=== PATIENT | male | born 1970 | race Caucasian/White ===

== ENCOUNTER 2016-09-03 05:19 | Inpatient (IN) | payer OTHER ==
--- NOTE | 2016-08-28 10:58 | PREOPHP ---
DATE OF ADMISSION: 09/03/2016 The patient to have surgery with Dr. Huan Clarke 09/03/2016. REASON FOR CONSULTATION: Consultation requested by Dr. Huan Clarke for medical evaluation and mercedez arance of a 46-year-old gentleman about to undergo surgery on his lumbar spine. Thank you, Dr. Clarke, for allowing us to participate in the care of this patient. HISTORY OF PRESENT ILLNESS: Adalberto Perez is a 46-year-old gentleman complaints of back secondary to work injury is currently being admitted for microdiskectomy at L4-L5 and L5-S1 on the right for herniated disk. In terms of his general medical condition, the patient has been relatively well; ho wever, has some weight issues and is being treated with medications. PAST MEDICAL HISTORY: He has had the following prior surgery, which is surgery for removal of a nec k growth x2. Other than that, has had no medical hospitalizations nor other surgeries. He has not broken any bones. MEDICATIONS: He is currently takin. Pravastatin 20 mg a day. 1. Metformin 500 mg b.i.d. 2. Vitamin D for a vitamin D deficiency. ALLERGIES: HE IS ALLERGIC TO PENICILLIN WELL CRAB AND LOBSTER. SOCIAL HISTORY: The patient is , has 4 children, no grandchildren. He does not smoke. Alco hol socially. No coffee. Has no difficulty sleeping at night and works as a milk pickup truck driver. FAMILY HISTORY: Both parents are . Father in his 60s of lung cancer. Mother als o in her 60s of breast cancer. Father was a diabetic. One sibling OD'd. Six siblings are living. There is a family history of diabetes, cancer and hypertension. No heart or stroke to his knowledg e. REVIEW OF SYSTEMS HEENT: Periodic headaches secondary to neck pain. CARDIORESPIRATORY: Denies any chest pain or shortness breath. GASTROINTESTINAL: No melena, hematemesis. GENITOURINARY: No urgency, frequency. MUSCULOSKELETAL: Positive for back pain. NEUROPSYCHIATRIC: Unremarkable. GENERAL HEALTH: As above. PHYSICAL EXAMINATION: VITAL SIGNS: The patient's blood pressure was 140/90, pulse was 80 and regular, respirations were 1 8, temperature 98.4. Height 6 feet. Weight 252 pounds. GENERAL: The patient was noted to be a well-developed, well-nourished, overweight male, alert and c ooperative, in no apparent acute distress, oriented to time, place, and person. HEAD, EARS, EYES, NOSE AND THROAT: Head was atraumatic. Eyes: Pupils were equal, reactive to ligh t and accommodation. Fundi were benign. Tympanic membranes were unremarkable. Nose was negative. Mouth was unremarkable. Fair oral hygiene was present. NECK: Supple without any rigidity. Trachea was midline. Thyroid was unremarkable. Neck veins wer e flat. Carotid pulses were equal. No bruits were heard. There was a scar posterior neck from rem oval of a growth on the right side. BACK: Unremarkable. CHEST: Symmetrical. BREASTS AND AXILLARY: Did not reveal any masses. LUNGS: Clear to percussion and auscultation. HEART: PMI is fifth intercostal space at the midclavicular line. Regular sinus rhythm was noted. No significant murmurs, rubs, or gallops being elicited. ABDOMEN: Soft, good bowel sounds were noted. No significant organomegaly, masses, or tenderness. GENITALIA: Normal male external genitalia. RECTAL AND PROSTATIC: Per PCP. EXTREMITIES: Did not reveal any clubbing, edema or cyanosis. Peripheral pulses were physiologic. SKIN: Moist and warm without any eruptions. No gross lymphadenopathy was noted. NEUROLOGIC: Grossly intact. IMPRESSION 1. Lumbar disk disease particularly L4-L5, L5-S1. 2. Diabetes mellitus type 2. 3. Hyperlipidemia. 4. Hypertension. 5. Stable health. LABORATORIES: Review of laboratory and other data revealed the following: Patient's chemistry pane l including electrolytes, BUN, creatinine and liver function tests revealed normal electrolytes, BUN and creatinine. The patient's liver function tests revealed minimal elevation of SGPT and SGOT pro bably secondary to his weight issue. His glucose was 136. Hemoglobin A1c was 7.2. The patient's C BC, UA, PT and PTT were normal. His EKG was unremarkable, some minor ST-T wave changes without any acute changes being noted. The p atient's chest x-ray was normal as was his bladder scan revealed a residual of 15 mL. DISCUSSION: Dr. Clarke, I see no contraindication in this patient undergoing current proposed gissel jo under desired form of anesthesia. I will be more than happy to follow him up along with you du ring his stay at [facility]. Thank you again, Dr. Clarke, for allowing us to participate in care of this patient. Dictated By: ROX DUNCAN/YOLY Conf#: [id number] DID#: [id number]
[2016-09-03] VITALS (22 sets, daily range): BP systolic 126–200; BP diastolic 57–111; PULSE 89–106; RESP 16–21; Ht 182.9 cm; Wt 116.7 kg
[~2016-09-03] VITALS: Ht 182.9 cm; Wt 116.7 kg
[~2016-09-03 05:19] MED LIST: LACTATED RINGER'S 1,000 ML IV* SCH; VANCOMYCIN 1 GM (PMX) 250 ML IVPB ONE
[2016-09-03] MEDS ORDERED: vitamin d (06:30)
[2016-09-03] MEDS ORDERED: PRA20 PO (06:30)
[2016-09-03] MEDS ORDERED: METF500T4 PO (06:30)
[2016-09-03] MEDS ORDERED: ONDANSETRON 4 MG INJ ONE (06:48)
[2016-09-03] MEDS ORDERED: PROPOFOL 20 ML ONE ×2 (06:48→07:29)
[2016-09-03] MEDS ORDERED: MIDAZOLAM 1 MG/ML 2 ML INJ ONE (06:48)
[2016-09-03] MEDS ORDERED: ROCURONIUM 50 MG INJ ONE ×2 (06:48→07:29)
[2016-09-03] MEDS ORDERED: HYDROmorphONE 2 MG/ML SYG ONE (06:57)
[2016-09-03] MEDS ORDERED: ALBU2.5V9 IH (06:59)
[2016-09-03] MEDS ORDERED: BUPIVACAINE 0.25% (MPF) 10 ML 10 ML VIAL ONE (07:00)
[2016-09-03] MEDS ORDERED: GELATIN SIZE 100 SPONGE ONE (07:00)
[2016-09-03] MEDS ORDERED: POLYMYXIN/BACITRACIN 1L IRRIG ONE (07:01)
[2016-09-03] MEDS ORDERED: THROMBIN 5000 UNIT VIAL ONE (07:01)
[2016-09-03] MEDS ORDERED: DIPHENHYDRAMINE 50 MG INJ ONE (07:03)
[2016-09-03] MEDS ORDERED: METOPROLOL 5 MG INJ ONE (07:38)
[2016-09-03] MEDS ORDERED: EPHEDrine SULFATE 50 MG/5 ML SYG ONE (08:05)
[2016-09-03] MEDS ORDERED: NEOSTIGMINE 3 MG/3 ML SYRINGE ONE (08:59)
[2016-09-03] MEDS ORDERED: GLYCOPYRROLATE 1 MG INJ ONE (08:59)
[2016-09-03] MEDS ORDERED: METOCLOPRAMIDE 10 MG INJ IV PRN (09:00)
[2016-09-03] MEDS ORDERED: LABETALOL HCL 20MG INJ IV PRN (09:00)
[2016-09-03] MEDS ORDERED: MEPERIDINE 25 MG INJ IV PRN (09:00)
[2016-09-03] MEDS ORDERED: DIPHENHYDRAMINE 50 MG INJ IV PRN (09:00)
[2016-09-03] MEDS ORDERED: ONDANSETRON 4 MG INJ IV PRN ×2 (09:00→09:30)
[2016-09-03] MEDS ORDERED: HYDROmorphONE (0.2 MG/ML) 10ML SYG IV PRN ×2 (09:00)
[2016-09-03] MEDS ORDERED: FENTAnyl 50 MCG/ML VIAL IV PRN ×3 (09:00)
[2016-09-03] MEDS ORDERED: hydrALAzine 20 MG INJ IV PRN (09:00)
[2016-09-03] MEDS ORDERED: HYDROmorphONE 0.2 MG/ML PCA ONE (09:28)
[2016-09-03] MEDS ORDERED: HYDROmorphONE 0.2 MG/ML PCA IV SCH ×2 (09:29→14:30)
[2016-09-03] MEDS ORDERED: BETHANECHOL 25 MG TAB PO PRN (09:30)
[2016-09-03] MEDS ORDERED: NACL 0.9% 3 ML SYG IV SCH (09:30)
[2016-09-03] MEDS ORDERED: HYDROCODONE/APAP (5/325) TAB PO PRN ×2 (09:30)
[2016-09-03] MEDS ORDERED: CEPASTAT LOZENGE MT PRN (09:30)
[2016-09-03] MEDS ORDERED: ACETAMINOPHEN 325 MG TAB PO PRN (09:30)
[2016-09-03] MEDS ORDERED: PROCHLORPERAZINE 10 MG TAB PO PRN (09:30)
[2016-09-03] MEDS ORDERED: TRIMETHOBENZAMIDE 100 MG/ML VIAL IM PRN (09:30)
[2016-09-03] MEDS ORDERED: DIAZEPAM 5 MG/ML SYG IM PRN (09:30)
[2016-09-03] MEDS ORDERED: NALOXONE (0.4 MG/ML) INJ IV PRN (09:30)
[2016-09-03] MEDS ORDERED: AL HYDROX/MG HYDROX/SIMETH 30 ML CUP PO PRN (09:30)
[2016-09-03] MEDS ORDERED: ZOLPIDEM 5 MG TAB PO PRN (09:30)
[2016-09-03] MEDS: HYDROmorphONE (0.2 MG/ML) 10ML SYG IV PRN ×3 (09:38→09:56)
--- NOTE | 2016-09-03 10:00 | RADRPT ---
PROCEDURE: XR Lumbar Spine. CLINICAL INDICATION: Lumbar microdiskectomy. TECHNIQUE: Lumbar spine x-rays, single cross-table lateral intraoperative view. COMPARISON: None. FINDINGS: Lumbosacral intervertebral disk narrowing is present. Surgical instrumentation is present at the L5 -S1 disk level and at the level of the superior endplate of L4. Vertebral body heights are normal. Vertebral body alignment is maintained. IMPRESSION: Surgical instrumentation markers, as described above. Lumbosacral degenerative disk disease. RPTAT: HLST .Lluvia Mroeno MD, MD Date Time Electronically viewed and signed by .Lluvia Moreno MD, MD on 09/03/2016 10:00 .T/
--- NOTE | 2016-09-03 10:23 | RADRPT ---
PROCEDURE: XR Lumbar Spine. CLINICAL INDICATION: Lumbar microdiskectomy. TECHNIQUE: Lumbar spine x-rays, single cross-table lateral intraoperative view. COMPARISON: Lumbar spine x-ray 09/03/2016. FINDINGS: A surgical instrumentation marker is present at the lumbosacral junction. Bony mineralization appea rs normal. Vertebral body height and alignment are normal. Lumbosacral intervertebral disk narrowi ng is observed. Degenerative changes of the lower thoracic spine are present. IMPRESSION: Surgical instrumentation marker at the lumbosacral junction. Lumbosacral degenerative disk narrowing. RPTAT: HLST .Lluvia Moreno MD, Date Time Electronically viewed and signed by .Lluvia Moreno MD, on 09/03/2016 10:23 .T/
--- NOTE | 2016-09-03 10:51 | OPR ---
DATE OF OPERATION: 09/03/2016 PREOPERATIVE DIAGNOSES: 1. Herniated disk L4-L5 centrally. 2. Herniated disk L5-S1 on the right. POSTOPERATIVE DIAGNOSES: 1. Herniated disk L4-L5 centrally. 2. Herniated disk L5-S1 on the right. OPERATION PERFORMED: 1. Right hemilaminotomy, L4. 2. Right hemilaminotomy, L5. 3. Microdiskectomy, L4-5 and L5-S1 on the right. 4. Medial facetectomy and foraminotomy, L4-5 and L5-S1 on the right. 5. Cosmetic wound closure (6 cm). 6. Lateral localized lumbar radiographs (2). 7. Intraoperative nerve monitoring (60 minutes). SURGEON: Huan Clarke MD SCENIC ARTIST: HARSH Dvaies ANESTHESIA: General endotracheal. ANESTHESIOLOGIST: Dr. Greco. ESTIMATED BLOOD LOSS: 30 mL-none replaced. DRAINS: Two medium Hemovac drains employed. COMPLICATIONS: None. PERTINENT HISTORY AND PHYSICAL: This is a 46-year-old male with persistent back and right leg pain which has been unrelieved by conservative management following industrial injury of 11/24/2014. He has had extensive care since that time, has remained symptomatic. He has undergone a number of diag nostic studies including an MRI of the lumbar spine, which demonstrated a moderate central herniatio n at L4-L5 and a small right paracentral herniation at L5-S1. Treatment options were discussed with the patient, who elected to proceed with surgery. OPERATIVE FINDINGS AT SURGERY: A central herniation L4-L5 and a small right-sided paracentral herni ation at L5-S1 with some extruded disk fragments was confirmed. The baseline intraoperative nerve m onitoring revealed a decrease in the L4 potential on the left of 30%, the L4 potential on the right of 50%, the L5 potential on the left of 50%, the L5 potential on the right of 60% and the S1 potenti als bilaterally of 20%. These all returned to normal at the completion of the surgery. OPERATIVE PROCEDURE: With the patient in the supine position after satisfactory induction of genera l endotracheal anesthesia by Dr. Greco the patient was turned to the prone kneeling position on the Amparo frame. All pressure points were carefully padded. Back was prepped and draped in usu al sterile fashion. Athrombic pumps were applied to the legs below the knees to prevent venous felicia is during and after procedure. An indwelling Zhao catheter was also placed preoperatively to facil itate bladder drainage during and after the procedure. Two spinal needles were placed next to what was felt to be the L4 and L5 spinous processes, lateral roentgenogram was taken to confirm anatomic localization. A 6 cm incision then carried out midline from L4 to sacrum through skin and subcutane ous tissue to the deep fascia after skin was infiltrated with 0.25% Marcaine without epinephrine for postoperative analgesia. Superficial retractors were placed and hemostasis secured with electrocau yusuf. The fascial incision was made from L4 to the sacrum using the hot knife and a subperiosteal d issection carried out from L4 to sacrum. Deep retractors were placed and deep hemostasis secured wi th electrocautery. A second intraoperative radiograph was taken with deep retractor at what was fel t to be the L5-S1 interspace, and this was confirmed with second x-ray. A right hemilaminotomy at L 5 was then carried out using Leksell rongeur, Kerrison punches and curettes. Ligamentum flavum was incised with sharp dissection. The operating microscope was then moved into place. Medial facetect andrea and foraminotomy was accomplished using small hand osteotome, mallet, Kerrison punches and curet indra. The S1 root was then mobilized medially and protected with Mnuir'Nicoleico nerve retractor using micr odissection technique. This revealed an extruded disk herniation at L5-S1. A 15 blade knife used t o cut a rectangular window in the annulus and posterior longitudinal ligament and multiple degenerat elle disk fragments were harvested with pituitary rongeurs and sent to laboratory for pathologic stud y. Additional fragments were harvested using Jaret curettes. The epidural hemostasis was secured with bipolar electrocautery on low setting. The anesthesiologist was asked to perform a Valsalva m aneuver at 40 mmHg and no spinal fluid leakage was noted. Attention then turned to the L4-5 level where the L4 hemilaminotomy was carried out in similar fashi on using Leksell rongeur, Kerrison punches and curettes. Ligamentum flavum was excised with sharp d issection and a medial facetectomy and foraminotomy was accomplished using small hand osteotome, mal let, Kerrison punches and curettes. The L5 root was then mobilized medially and protected with Victor Hugo aguilar nerve root retractor. This revealed a herniation of the L4-5 disk centrally. A 15 blade knife used to cut a rectangular window in the annulus and posterior longitudinal ligament and multiple de generative disk fragments were harvested with pituitary rongeurs and sent to laboratory for patholog ic study. Additional fragments were harvested using Jaret curettes. A thorough search of the faye or of the canal was made with an arthroscopic probe and no additional fragments were encountered. T he epidural hemostasis was secured with bipolar electrocautery on low setting. The anesthesiologist was asked to perform a second Valsalva maneuver at 40 mmHg throughout which there was no evidence s erika fluid leakage. The wound was then closed in layers over 2 medium Hemovac drains, one below th e fascia and one above the fascia, using #1 Stratafix sutures on the deep paralumbar musculature and deep fascia of back, 2-0 Vicryls Stratafix sutures in subcutaneous tissue, and a 4-0 Vicryl subcuti cular cosmetic closing suture on the skin. Dermabond and sterile compressive dressings were applied . Patient tolerated procedure well, was then turned to the supine position onto his bed and extubat ed by Dr. Greco. He was transported to the recovery room in satisfactory condition. At the con clusion of the procedure, sponge, instrument, and needle counts were all correct. NEED FOR SENIOR CAPITAL MARKETS SPECIALIST: During this spinal surgical procedure, my accountant assistant was used to retrac t and protect the spinal nerves and dural sac. My accountant assistant also employed the suction catheters to e vacuate blood from the surgical field to improve visualization of the neural structures. The assista nt was medically necessary to facilitate the completion of the surgery in a safe and expeditious man ner. State of [place] regulations, as well as hospital bylaws, preclude the use of non-licensed [facility] care personnel such as operating room technicians, to perform these functions. Throughout the procedure, neural monitoring was carried out by [employer] including EMG, SSEP and MEP monitoring of the L2, L3, L4, L5, and S1 nerve roots bilaterally along w ith spinal cord potentials. These were interpreted by neurologist employed by [employer]. Dictated By: HUAN VALLES/YOLY Conf#: [id number] DID#: [id number] CC: ROX DIAMOND MD;*[facility]*
[2016-09-03] MEDS: DIPHENHYDRAMINE 50 MG CAP PO PRN ×2 (11:27→17:25)
[2016-09-03] MEDS: SOD CHLORIDE 0.45% 1,000 ML IV SCH ×2 (11:30→19:18)
[2016-09-03] MEDS ORDERED: GLUCAGON 1 MG INJ IM PRN (14:00)
[2016-09-03] MEDS ORDERED: ALBUTEROL 0.5% (NEB) 2.5 MG/0.5 ML AMP NEB PRN (14:00)
[2016-09-03] MEDS ORDERED: GLUCOSE GEL 15 GRAM TUBE PO PRN ×2 (14:00)
[2016-09-03] MEDS ORDERED: GLUCOSE GEL 15 GRAM TUBE BUCCAL PRN (14:00)
[2016-09-03] MEDS ORDERED: DEXTROSE 50% 50 ML SYRINGE IV PRN ×2 (14:00)
--- NOTE | 2016-09-03 14:01 | CONS ---
DATE OF ADMISSION: 09/03/2016 DATE OF CONSULTATION: 09/03/2016 POSTOPERATIVE CONSULTATION FOLLOWUP The patient had surgery with Dr. Huan Clarke 09/03/2016. HISTORY OF PRESENT ILLNESS: The patient is seen postoperatively in his room. The patient is alert, doing well. No major complaints other than pain, but other than that seems to be doing well. PHYSICAL EXAMINATION: VITAL SIGNS: Reveal blood pressure of 145/75, pulse 90 and regular, respirations 19, O2 saturation 98%. The patient was afebrile earlier. HEENT: Unremarkable. LUNGS: Clear. HEART: Reveals a regular rhythm. ABDOMEN: Unremarkable. IMPRESSION: 1. Status post lumbar spine surgery. 2. Hyperlipidemia. 3. Diabetes mellitus. 4. Hypertension. DISCUSSION: The patient's preoperative medicines will be continued. We will monitor his blood suga rs and hopefully he will be relatively easy to manage from that standpoint and also renew his antihy pertensive and antihyperlipidemic medicines. We will follow him with you. Thank you again, Dr. Clarke, for allowing us to participate in the care of this patient. Dictated By: ROX DIAMOND MD SS/NTS Conf#: [id number] DID#: [id number]
[2016-09-03] MEDS: DIAZEPAM 5 MG TAB PO PRN ×2 (14:25→21:07)
[2016-09-03] MEDS: LOSARTAN 25 MG TAB PO SCH (16:00)
[2016-09-03] MEDS: metFORMIN 500 MG TAB PO SCH (17:25)
[2016-09-03] MEDS: INSULIN ASPART [NOVOLOG] 3 ML PEN SC SCH ×2 (17:55→21:00)
[2016-09-03] MEDS: VANCOMYCIN 1 GM (PMX) 250 ML IVPB SCH (17:58)
[2016-09-03] MEDS: RANITIDINE 150 MG TAB PO SCH (20:57)
[2016-09-04 00:10] VITALS: BP 121/59; PULSE 97; RESP 20
[2016-09-04] MEDS ORDERED: ACCUCHECK XX SCH (02:00)
[2016-09-04] MEDS: SOD CHLORIDE 0.45% 1,000 ML IV SCH ×3 (02:10→15:18)
[2016-09-04] MEDS: VANCOMYCIN 1 GM (PMX) 250 ML IVPB SCH (05:08)
[2016-09-04 06:29] LABS: HEMATOCRIT 40.6 % (42.0-52.0); HEMOGLOBIN 13.7 g/dl (14.0-18.0)
[2016-09-04 06:33] LABS: POTASSIUM 4.1 mmol/L (3.5-5.1)
[2016-09-04 06:35] LABS: CREATININE 0.7 mg/dl (0.61-1.24)
[2016-09-04 06:36] LABS: CALCIUM 8.2 mg/dl (8.4-10.2)
--- NOTE | 2016-09-04 07:09 | PN ---
Date/Time of Note Date/Time of Note DATE: 09/04/16 TIME: 07:08 Assessment/Plan Lines/Catheters IV Catheter Type (from Nrs): Peripheral IV Zhao in Place (from Nrs): Yes Subjective 24 Hr Interval Summary The patient is postop day #1 following a 2 level microdiscectomy at L4-5 and L5- S1 on the right. He is afebrile and comfortable. His a.m. labs are unremarkable. He has a Hemovac in place with 10 cc of drainage. He has a Zhao catheter in place. His examination reveals neurovascular structures to be intact distally. His Hemovac was removed today using aseptic technique. His wound is clean and dry and was redressed. Plan is to have physical therapy ambulate him 4 times today with a walker until he is independent. Exam/Review of Systems Vital Signs Vitals Vital Signs Date Time Temp Pulse Resp B/P Pulse Ox O2 Delivery O2 Flow Rate FiO2 09/04/16 05:00 18 09/04/16 01:41 97 6.0 09/04/16 00:10 98.3 97 121/59 CPAP Nasal Cannula Intake and Output 09/03/16 09/03/16 09/04/16 15:00 23:00 07:00 Intake Total 1700 ml 850 ml 2400 ml Output Total 285 ml 10 ml 2715 ml Balance 1415 ml 840 ml -315 ml Results Result Diagram: 09/04/16 0536 09/04/16 0536 CAYDEN CRUM MD Sep 04, 2016 07:09
[2016-09-04 08:00] VITALS: BP 135/62; PULSE 73; RESP 20
[2016-09-04] MEDS ORDERED: BETHANECHOL 25 MG TAB PO PRN (08:00)
[2016-09-04] MEDS ORDERED: ASCORBIC ACID 500 MG TAB PO SCH (09:00)
[2016-09-04] MEDS ORDERED: DOCUSATE SODIUM 100 MG CAP PO SCH (09:00)
[2016-09-04] MEDS ORDERED: ATORVASTATIN 10 MG TAB PO SCH (09:00)
[2016-09-04] MEDS: FERROUS SULFATE (EC) 325 MG TAB PO SCH ×2 (09:26→13:00)
[2016-09-04] MEDS: metFORMIN 500 MG TAB PO SCH ×2 (09:26→18:16)
[2016-09-04] MEDS: RANITIDINE 150 MG TAB PO SCH (09:26)
[2016-09-04] MEDS: LOSARTAN 25 MG TAB PO SCH (09:27)
[2016-09-04 09:30] VITALS: BP 138/66; PULSE 86; RESP 18
[2016-09-04] MEDS ORDERED: OXYCODONE/ACETAMINOPHEN (5/325) TAB PO PRN (10:00)
[2016-09-04] MEDS: OXYCODONE/ACETAMINOPHEN (5/325) TAB PO PRN ×3 (10:09→18:16)
--- NOTE | 2016-09-04 10:14 | CONS ---
DATE OF ADMISSION: 09/03/2016 DATE OF CONSULTATION: 09/04/2016 TIME SEEN: Approximately 7:50 a.m. HISTORY OF PRESENT ILLNESS: The patient is relatively comfortable; still complaining of pain. CPAP machine in place, but patient is alert. The patient's legs feel better, in terms of radiating pain , but is complaining of a significant amount of pain in his back. PERTINENT FINDINGS VITAL SIGNS: The patient's blood pressure 121/59, pulse 97, temperature 98.3, respiratory rate 20, O2 saturation 93% with his CPAP machine and nasal cannula. HEENT: Unremarkable. LUNGS: Clear. HEART: Reveals a regular rhythm. ABDOMEN: Unremarkable. IMPRESSION 1. Status post lumbar spine surgery. 2. Sleep apnea. 3. Diabetes mellitus type 2. 4. Hyperlipidemia. 5. Hypertension. DISCUSSION: Laboratory and other data revealed the following: The patient's hemoglobin 13.7, hemat ocrit 40.6. The patient's chemistries reveal normal electrolytes, BUN, creatinine, glucose a.m. 135 . Calcium slightly low. His Accu-Cheks have been pretty well in range. Instructions given to lowe r his Accu-Cheks to twice a day with the same coverage as before, and obviously the quicker patient moves around better, the better his pulmonary status will be as well. Thank you again, Dr. Clarke, for allowing us to participate in the care of this patient. Dictated By: ROX DUNCAN/NTS Conf#: [id number] DID#: [id number]
[2016-09-04 10:40] LABS: ADD UMIC YES; URINE BILIRUBIN (Dip) NEGATIVE (NEGATIVE); URINE BLOOD (Dip) 2+ (NEGATIVE); URINE COLOR YELLOW (YELLOW); URINE GLUCOSE (Dip) NEGATIVE (NEGATIVE); URINE KETONES (Dip) NEGATIVE (NEGATIVE); URINE LEUKOCYTE ESTERASE (Dip) NEGATIVE (NEGATIVE); URINE NITRITE (Dip) NEGATIVE (NEGATIVE); URINE TOTAL PROTEIN (Dip) TRACE (NEGATIVE); URINE UROBILINOGEN (Dip) 1.0 E.U./dL (0.1-1.0)
[2016-09-04] MEDS: DIAZEPAM 5 MG TAB PO PRN (13:10)
[2016-09-04] MEDS ORDERED: INSULIN ASPART [NOVOLOG] 3 ML PEN SC SCH (17:55)
== END 2016-09-04 18:25 | disposition home or self-care (01) | DRG 520 ==
LOC: REC 05:19 → EDBD 07:00 → MS1 10:22
PROVIDERS: ADMIT Orthopaedic Surgery; ATTEND Orthopaedic Surgery
PROC: 0SB40ZZ Excision of Lumbosacral Disc, Open Approach (ICD-10-PCS; principal; 2016-09-03 07:00)
DX: M51.17 Intervertebral disc disorders with radiculopathy, lumbosacral region (principal); I10 Essential (primary) hypertension; E11.9 Type 2 diabetes mellitus without complications; E78.5 Hyperlipidemia, unspecified; G47.30 Sleep apnea, unspecified
CPT/HCPCS: 72020; 80048; 81001; 81003; 82962; 85014; 85018; 86850; 86900; 86901; 86920; 87086; 88304; 97116; 97163; 97530; J0360; J1170; J1200; J1815; J2175; J2250; J2405; J2710; J3370; J7120